=== PATIENT | female | born 2000 ===

== ENCOUNTER 2022-01-25 18:45 | Emergency (ER) | payer OTHER ==
[~2022-01-25] VITALS: Ht 154.9 cm; Wt 77.1 kg
== END 2022-01-25 22:33 | disposition home or self-care (01) ==
LOC: ER 18:45
DX: O26.891 Other specified pregnancy related conditions, first trimester (principal); Z3A.01 Less than 8 weeks gestation of pregnancy; R10.2 Pelvic and perineal pain